=== PATIENT | male | born 1965 | race African-American/Black ===

== ENCOUNTER 2016-06-20 08:50 | Emergency (ER) | payer MEDICAID, OTHER ==
[~2016-06-20] VITALS: Ht 177.8 cm; Wt 90.0 kg
[~2016-06-20 08:50] MED LIST: ACET1TAB12 PO; CIPR-263 PO
[2016-06-20] MEDS ORDERED: ONDANSETRON HCL 4MG/2ML VIAL IV STA (08:55)
[2016-06-20] MEDS ORDERED: SODIUM CHLORIDE 0.9% 1,000 ML IV ONE (08:55)
[2016-06-20] MEDS ORDERED: MORPHINE SULFATE 4 MG/ML CPJ (NOT FOR IM USE) IV STA (08:55)
[2016-06-20 09:17] LABS: BASOPHILS % 0.3 % (0.0-2.0); EOSINOPHILS % 1.5 % (0.0-5.0); HEMATOCRIT. 43.3 % (42.0-52.0); HEMOGLOBIN. 14.6 g/dL (14.0-18.0); LYMPHOCYTES % 16.3 % (20.0-50.0); MEAN CORPUSCULAR HEMOGLOBIN 29.2 pg (28.0-32.0); MEAN CORPUSCULAR HGB CONC 33.7 g/dL (31.0-37.0); MEAN CORPUSCULAR VOLUME 86.7 fL (80.0-94.0); MEAN PLATELET VOLUME 9.7 fl (7.4-10.4); MONOCYTES % 5.7 % (2.0-8.0); NEUTROPHILS % 76.2 % (40.0-76.0); PLATELET 129 x1000/uL (130-400); RED CELL DISTRIBUTION WIDTH 12.9 % (11.6-14.6); WHITE BLOOD COUNT 8.9 x1000/uL (4.5-11.0)
[2016-06-20 09:24] LABS: CHLORIDE 108 mEq/L (98-107); INDEX HEMOLYSI 1 (1-3); INDEX ICTERIC 1 (1-4); INDEX LIPEMIC 1 (1-3); INR 1.1; PROTHROMBIN TIME 11.9 sec
[2016-06-20 09:32] LABS: ALANINE AMINOTRANSFERASE 16 IU/L (13-61); ANION GAP 10; CALCIUM 9.3 mg/dL (8.5-10.1); CARBON DIOXIDE 27 mEq/L (21-32); LIPASE 392 IU/L (73-393); UREA NITROGEN BLOOD 13 mg/dL (7-21); eGFR > 60 mL/min (>60)
[2016-06-20 11:36] LABS: CLARITY URINE CLEAR (CLEAR); COLOR URINE YELLOW (YELLOW); GLUCOSE URINE NEGATIVE (NEGATIVE); KETONES URINE TRACE (NEGATIVE); LEUKOCYTE ESTERASE URINE TRACE (NEGATIVE); NITRITE URINE NEGATIVE (NEGATIVE); OCCULT BLOOD URINE NEGATIVE (NEGATIVE); PH URINE 6.5 (4.5-8.0); PROTEIN URINE NEGATIVE (NEGATIVE); SPECIFIC GRAVITY URINE 1.026 (1.005-1.030)
[2016-06-20 11:58] LABS: MUCUS URINE 1+ /lpf (NONE/TRACE); TRICHOMONAS URINE 1+
[2016-06-20 11:59] LABS: BACTERIA URINE 1+; RBC URINE 0-2 /hpf (0-2); SQUAMOUS EPITHELIAL CELL URINE 1+ /lpf (RARE/1+)
[2016-06-20] MEDS ORDERED: ONDANSETRON HCL 4MG/2ML VIAL IV ONE (12:30)
[2016-06-20] MEDS ORDERED: METRONIDAZOLE 500MG TABLET PO ONE (12:30)
[2016-06-20] MEDS ORDERED: AZITHROMYCIN 1,000 MG in DEXT 5% WATER 250 ML IV ONE (13:30)
[2016-06-20] MEDS ORDERED: AZITHROMYCIN 500 MG TABLET PO SCH (13:45)
[2016-06-20] MEDS ORDERED: CEFTRIAXONE 250 MG in DEXTROSE 5% WATER 50 ML IV ONE (14:00)
[2016-06-20] MEDS ORDERED: CEFTRIAXONE SODIUM 250 MG/VIAL ONE (14:09)
[2016-06-20] MEDS ORDERED: IOHEXOL-300 100 ML BOTTLE ONE (14:29)
[2016-06-20] MEDS ORDERED: SODIUM CHLORIDE 0.9% 10ML VIAL ONE (14:29)
[2016-06-20 15:37] VITALS: BP 122/88
== END 2016-06-20 15:40 | disposition home or self-care (01) ==
LOC: ER 09:27
DX: A59.9 Trichomoniasis, unspecified (principal); R19.7 Diarrhea, unspecified; R11.10 Vomiting, unspecified; K27.9 Peptic ulcer, site unspecified, unspecified as acute or chronic, without hemorrhage or perforation; F17.210 Nicotine dependence, cigarettes, uncomplicated; F12.10 Cannabis abuse, uncomplicated; Z88.0 Allergy status to penicillin; Z79.1 Long term (current) use of non-steroidal anti-inflammatories (NSAID); Z79.899 Other long term (current) drug therapy
CPT/HCPCS: 36415; 74177; 80053; 81001; 83690; 85025; 85610; 96361; 96365; 96375; 99285; A4216; J0696; J2270; J2405; J7030; Q9967; Z7610; J0456; J7060

== ENCOUNTER 2017-03-05 18:17 | Emergency (ER) | payer MEDICAID, OTHER ==
[~2017-03-05] VITALS: Ht 180.3 cm; Wt 93.0 kg
[2017-03-05 18:19] VITALS: BP 130/90
== END 2017-03-05 20:55 | disposition left against medical advice (07) ==
LOC: ER 18:39
DX: R10.9 Unspecified abdominal pain (principal); Z53.21 Procedure and treatment not carried out due to patient leaving prior to being seen by health care provider